=== PATIENT | female | born 1960 | race American Indian/Alaskan Native ===

== ENCOUNTER 2018-01-26 08:53 | Outpatient (CLI) | payer OTHER ==
--- NOTE | 2018-01-27 08:34 | Mammography Report ---
BILATERAL DIGITAL SCREENING MAMMOGRAM WITH CAD: 01/26/18 08:53:00 CLINICAL: Routine screening. COMPARISON:06/12/15 FINDINGS: The breasts are mostly fatty. A new group of a few calcifications at 6 o'clock in the right breast requires additional imaging. No associated mass or architectural distortion. The left breast is negative. IMPRESSION: Right calcifications requiring further workup. BI-RADS CATEGORY: 0 -- Additional Imaging Evaluation Required RECOMMENDATION: Recall for right WALKER and spot magnification CC and LM views. ACR BI-RADS MAMMOGRAPHIC CODES: 0 = Needs additional imaging evaluation; 1 = Negative; 2 = Benign; 3 = Probably benign; 4 = Suspicious; 5 = Malignant; 6 = Known biopsy-proven malignancy COMMENT: 1. Dense breast tissue, i.e., adenosis, fibrocystic changes, etc., may obscure an underlying neoplasm. 2. Approximately 10% of cancers are not detected with mammography. 3. A negative mammography report should not delay biopsy if a clinically suspicious mass is present. COMMENT: Patient follow-up letters are generated via our [employer] application.
== END 2018-01-26 08:54 | disposition home or self-care (01) ==
LOC: MAMMO 08:53
PROVIDERS: ATTEND Internal Medicine
DX: Z12.31 Encounter for screening mammogram for malignant neoplasm of breast (principal)
CPT/HCPCS: 77067

== ENCOUNTER 2018-11-20 08:52 | Outpatient (CLI) | payer OTHER ==
--- NOTE | 2018-11-20 09:48 | Mammography Report ---
RIGHT DIGITAL DIAGNOSTIC MAMMOGRAM WITH CAD, 11/20/2018 INDICATION: Right diagnostic 6 month follow-up mammogram for calcifications TECHNIQUE: Digital right mammographic imaging was performed. Magnification views were obtained. This examination was interpreted with the benefit of Computer-aided Detection analysis. COMPARISON: Prior mammogram, 01/26/2018 FINDINGS: Breast Density: There are scattered areas of fibroglandular density. There is a cluster of calcifications in the right breast at 6:00. On the magnification views performe d today, the calcifications are clearly within the skin, and therefore benign. No further follow-up i s indicated or required.. IMPRESSION: Cluster of calcifications in the right breast at 6:00 are within the skin and are benign. No further follow-up is indicated. BI-RADS Category 2: Benign. Recommend resuming annual screening mammography. Patient will be due for bilateral annual screening mammogram in January 2019 A "normal" or negative report should not discourage follow up or biopsy of a clinically significant f inding. A written summary of these findings will be mailed to the patient. The patient will be entered into a mammography reporting system which will generate a reminder letter for the patient's next appointmen t at the appropriate interval. FURTHER INFORMATION: According to the [employer], yearly mammograms are recommend ed starting at age 40 and continuing as long as a woman is in good health. Breast MRI is recommended for women with an approximately 20-25% or greater lifetime risk of breast cancer, including women wi th a strong family history of breast or ovarian cancer and women who have been treated for Hodgkin's disease. Signer Name: Carolina Dong MD Signed: 11/20/2018 9:44 AM Workstation Name: [id number]
== END 2018-11-20 08:53 | disposition home or self-care (01) ==
LOC: MAMMO 08:52
PROVIDERS: ATTEND Internal Medicine
DX: R92.1 Mammographic calcification found on diagnostic imaging of breast (principal)